=== PATIENT | male | born 1965 | race Caucasian/White ===

== ENCOUNTER → 2023-08-08 10:44 | Outpatient (REF) | payer OTHER, SELFPAY | LOC: HWRAD 10:44 | PROVIDERS: ATTENDING PHYSICIAN Family Medicine | DX: Z87.891 Personal history of nicotine dependence (principal) | CPT/HCPCS: 71271 ==

== ENCOUNTER 2024-03-28 06:31 | Day surgery (SDC) | payer OTHER, SELFPAY | END 2024-03-28 15:15 | disposition home or self-care (01) | LOC: GI 06:31 | PROVIDERS: ATTENDING PHYSICIAN Internal Medicine Gastroenterology; FAMILY PHYSICIAN Family Medicine | DX: R93.3 Abnormal findings on diagnostic imaging of other parts of digestive tract (principal); R19.7 Diarrhea, unspecified; K64.8 Other hemorrhoids; K51.00 Ulcerative (chronic) pancolitis without complications; R19.4 Change in bowel habit; R12 Heartburn; R11.2 Nausea with vomiting, unspecified; K31.89 Other diseases of stomach and duodenum | CPT/HCPCS: 43239; 45378; 88305; 88342 ==

== ENCOUNTER → 2024-09-29 11:24 | Outpatient (REF) | payer OTHER, SELFPAY ==
[2024-09-29 12:03] LABS: Hematocrit 39.2 % (39.0-52.0); Hemoglobin 13.3 g/dL (13.0-18.0); Mean Corp Hgb Conc. 33.9 g/dL (33.0-37.0); Mean Corpuscular Volume 90.5 fL (80.0-94.0); Nucleated Red Blood Cells % 0 % (-); Platelet Count 379 10^3/uL (130-400); Red Cell Dist. Width 13.9 % (11.5-14.5)
[2024-09-29 12:25] LABS: ALT (SGPT) 14 U/L (0-50); AST (SGOT) 24 U/L (17-59); Albumin 3.9 g/dl (3.5-5.0); Alkaline Phosphatase 63 U/L (38-126); Blood Urea Nitrogen 7 mg/dl (9-20); Calcium 9.1 mg/dl (8.4-10.2); Carbon Dioxide 25 mmol/L (22-30); Chloride 111 mmol/L (98-107); Glucose 109 mg/dl (70-99); Iron 95 ug/dl (49-181); Potassium 4.4 mmol/L (3.5-5.1); Sodium 142 mmol/L (135-145); Total Protein 6.2 g/dl (6.3-8.2); eGFR > 60.00
[2024-09-29 12:35] LABS: Total Iron Binding Capacity 231 ug/dl (261-462)
[2024-09-29 13:00] LABS: Ferritin 62.9 ng/ml (17.9-464.0)
[2024-09-29 18:49] LABS: Hepatitis B Surface Antigen Negative (Negative)
== END ==
LOC: REG 11:24
PROVIDERS: ATTENDING PHYSICIAN Internal Medicine Gastroenterology; FAMILY PHYSICIAN Family Medicine
DX: K51.90 Ulcerative colitis, unspecified, without complications (principal)
CPT/HCPCS: 36415; 80053; 82565; 82728; 83540; 83550; 85025; 86480; 86706; 87340